=== PATIENT | male | born 1965 | race Two or more races ===

== ENCOUNTER 2025-01-16 14:58 | Emergency (ER) | payer SELFPAY ==
[~2025-01-16] VITALS: Ht 180.3 cm; Wt 93.0 kg
--- NOTE | 2025-01-16 15:09 | ED.PDOC ---
History of Present Illness HPI Comments 59M presents to the Er w/ no prior Hx associated to the c/c of congestion. Pt reports of having sinus pressure w/ congestion for the past 3 weeks. Pt notes that he was in the ER 2 months ago for cough. Denies chills, fever, N/V/D, CP. Patient does state continued intermittent cough. No other associated symptoms, modifiers, recent injuries or sick contacts present at this time. Vital signs were stable at arrival. Chief Complaint: Flu like Time Seen by MD: 15:00 Reviewed Notes: Nurses Notes, Medications, Allergies Allergies: Coded Allergies: NO KNOWN ALLERGIES (Unverified , 01/16/25) Information Source: Patient Mode of Arrival: Ambulatory Severity: Moderate Timing: Weeks Duration: Since onset Prehospital treatment: None Past Medical History PAST MEDICAL HISTORY: Denies Surgical History: Denies all surgeries Family History Family History: Reviewed,noncontributory to illness, Unknown Social History Smoker: Non-Smoker Alcohol: Denies ETOH Use Drugs: Denies Drug Use Lives In: Home Constitutional: denies: chills, diaphoresis, fatigue, fever, malaise, sweats, weakness, others EENTM: denies: blurred vision, double vision, ear bleeding, ear discharge, ear drainage, ear pain, ear ringing, eye pain, eye redness, hearing loss, mouth pain, mouth swelling, nasal discharge, nose bleeding, nose congestion, nose pain, photophobia, tearing, throat pain, throat swelling, voice changes, others Respiratory: reports: cough, others (Congestion and nasal pressure); denies: hemoptysis, orthopnea, SOB at rest, shortness of breath, SOB with excertion, stridor, wheezing Cardiovascular: denies: chest pain, dizzy spells, diaphoresis, Dyspnea on exertion, edema, irregular heart beat, left arm pain, lightheadedness, palpitations, PND, syncope, others Gastrointestinal: denies: abdomen distended, abdominal pain, blood streaked bowels, constipated, diarrhea, dysphagia, difficulty swallowing, hematemesis, melena, nausea, poor appetite, poor fluid intake, rectal bleeding, rectal pain, vomiting, others Genitourinary: denies: burning, dysuria, flank pain, frequency, hematuria, incontinence, penile discharge, penile sore, pain, testicle pain, testicle swelling, urgency, others Neurological: denies: dizziness, fainting, headache, left sided numbness, left sided weakness, numbness, paresthesia, pre-existing deficit, right sided numbness, right sided weakness, seizure, speech problems, tingling, tremors, weakness, others Musculoskeletal: denies: back pain, gout, joint pain, joint swelling, muscle pain, muscle stiffness, neck pain, others Integumetry: denies: bruises, change in color, change in hair/nails, dryness, laceration, lesions, lumps, rash, wounds, others Allergic/Immunocompromised: denies: Difficulty Healing, Frequent Infections, Hives, Itching, others Hematologic/Lymphatic: denies: anemia, blood clots, easy bleeding, easy bruising, swollen glands, others Endocrine: denies: excessive hunger, excessive sweating, excessive thirst, excessive urination, flushing, intolerance to cold, intolerance to heat, unexplained weight gain, unexplained weight loss, others Psychiatric: denies: anxiety, bipolar disorder, depression, hopeless, panic disorder, schizophrenia, sleepless, suicidal, others All Other Systems: Reviewed and Negative Physical Exam General Appearance: Mild Distress (Due to nasal congestion), Normal HEENT: Pharynx Normal, TMs Normal, Other (Mild coryza appreciated.) Neck: Full Range of Motion, Non-Tender, Normal, Normal Inspection Respiratory: Chest Non-Tender, Lungs Clear, No Accessory Muscle Use, No Respiratory Distress, Normal Breath Sounds, Other (Unremarkable auscultation bilateral lung jerez.) Cardiovascular: No Edema, No JVD, No Murmur, No Gallop, Normal Peripheral Pulses, Regular Rate/Rhythm Breast Exam: Deferred Gastrointestinal: No Organomegaly, Non Tender, No Pulsatile Mass, Normal Bowel Sounds, Soft Genitalia: Deferred Pelvic: Deferred Rectal: Deferred Extremities: No calf tenderness, Normal capillary refill, Normal inspection, Normal range of motion, Non-tender, No pedal edema Musculoskeletal : Apperance: Normal Neurologic: Alert, No Motor Deficits, Normal Affect, Normal Mood, No Sensory Deficits Cerebellar Function: Normal Reflexes: Normal Skin: Dry, Normal Color, Warm Lymphatic: No Adenopathy Was a procedure done? Was a procedure done?: No Differential Dx Considerations may include: Bacterial sinusitis, viral sinusitis, viral upper respiratory illness, pneumonia X-Ray, Labs, Meds, VS Vital Signs Date Time Temp Pulse Resp B/P (MAP) Pulse Ox O2 Delivery O2 Flow Rate FiO2 01/16/25 15:05 97.4 104 20 145/80 (101) 95 97.4 01/16/25 15:05 20 95 Room Air 0 X-Ray, Labs, Meds, VS Comment All studies performed the ED were evaluated by me personally. Imaging studies were unremarkable for any consolidation or intrapulmonary concerns. Due to the multi week concerns related to the sinus issue, I will treat the patient empirically with the antibiotics to address possible bacterial sinusitis. Advise utilizing medication as directed. Additional medication as needed. Good hydration and healthy nutrition throughout. Time of 1ST Reevaluation: 16:26 Reevaluation 1ST: Unchanged Consultation: PCP Patient Education/Counseling: Diagnosis, Treatment, Prognosis Family Education/Counseling: Diagnosis, Treatment, No Family Present Departure 1 Departure Time of Disposition: 16:27 Impression: Primary Impression: Sinusitis Disposition: 01 HOME / SELF CARE / HOMELESS Condition: Stable Additional Instructions: Advise utilizing antibiotics as directed until completion as well as additional medication as needed. Good hydration and healthy nutrition throughout. e-Prescriptions Oxymetazoline Hcl (AFRIN 12 HOUR) 0.05 % Spr 2 SPRAY NA BID, #15 ML Prov: BONNIE MEJÍA PAC 01/16/25 Amoxicillin & Pot Clavulanate (AUGMENTIN TABLET) 875 Mg Tb 875 MG PO BID for 7 Days, #14 TAB Prov: BONNIE MEJÍA PAC 01/16/25 Discharged With: Self, Friend Critical Care Note Critical Care Time?: No Stability Stability form required: No Heart Score Heart Score: Heart Score Response (Comments) Value History N/A 0 EKG N/A 0 Age N/A 0 Risk Factors N/A 0 Troponin N/A 0 Total 0 I personally scribed for BONNIE MEJÍA PAC ([email or web address]) on 01/16/25 at 15:09. Electronically submitted by Hilario Aleamn ([email or web address]). BONNIE MEJÍA PAC January 16, 2025 15:09
--- NOTE | 2025-01-16 15:49 | DVH ---
XY CHEST PORTABLE, HISTORY: Cough COMPARISON: None None TECHNICAL DATA: 1 view of the chest was obtained. FINDINGS: Lines and tubes: None Cardiomediastinal silhouette: normal Pulmonary vasculature: normal Lung expansion: normal Lung airspace: normal Lung interstitium: normal Pleura: normal Pneumothorax: no Bones: Unremarkable Other: no IMPRESSION: No acute intrathoracic abnormality.
[2025-01-16] MEDS ORDERED: AUG875T PO (16:29)
[2025-01-16] MEDS ORDERED: OXYM-15 (16:29)
[2025-01-16 16:52] VITALS: BP 153/95; PULSE 87; RESP 20; TEMP 98.8; O2SAT 97
== END 2025-01-16 17:03 | disposition home or self-care (01) ==
LOC: ER 14:58
DX: J32.9 Chronic sinusitis, unspecified (principal); R05.9 Cough, unspecified
CPT/HCPCS: 71045

== ENCOUNTER 2025-02-02 20:55 | Emergency (ER) | payer SELFPAY ==
[~2025-02-02] VITALS: Ht 180.3 cm; Wt 95.5 kg
[~2025-02-02 20:55] MED LIST: AUG875T PO; OXYM-15
[2025-02-02 21:56] VITALS: BP 160/98; PULSE 89; RESP 18; TEMP 97.6; O2SAT 95
[2025-02-02] MEDS ORDERED: FLUT1SPR5 (22:06)
[2025-02-02] MEDS ORDERED: LORA10CA PO (22:06)
--- NOTE | 2025-02-02 22:06 | ED.PDOC ---
Eye-HPI HPI Comments 59-year-old male presents to ER with complaints of sinus congestion x6 months. 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 Reports that he has been seen several times for this complaint with his last visit here on 01/16/2025 and was prescribed Augmentin antibiotics along with Afrin that he has finished without relief. Denies any pain. Patient presents to ER afebrile, ambulatory, with steady gait, in no distress. Denies headache, skin changes, purulent nasal drainage, shortness of breath, cough, body aches, chills or any further symptoms/complaints Chief Complaint: Flu like Time Seen by MD: 21:05 Primary Care Provider: UNKNOWN Reviewed Notes: Nurses Notes, Medications, Allergies Allergies: Coded Allergies: NO KNOWN ALLERGIES (Unverified , 01/16/25) Home Meds Active Scripts Fluticasone Propionate (Nasal) (Flonase Allergy Relief) 50 Mcg/Act Spr, 2 SPRAYS NA DAILY PRN, #1 SPRAY 0 Refills Prov:RICKY GUZMAN 02/02/25 Loratadine (Claritin) 10 Mg Cap, 10 MG PO DAILY PRN, #30 CAP 0 Refills Prov:RICKY GUZMAN 02/02/25 Oxymetazoline Hcl (AFRIN 12 HOUR) 0.05 % Spr, 2 SPRAY NA BID, #15 ML Prov:BONNIE MEJÍA [facility] 01/16/25 Amoxicillin & Pot Clavulanate (AUGMENTIN TABLET) 875 Mg Tb, 875 MG PO BID for 7 Days, #14 TAB Prov:BONNIE MEJÍA [facility] 01/16/25 Information Source: Patient Mode of Arrival: Ambulatory Past Medical History PAST MEDICAL HISTORY: Denies Surgical History: Denies all surgeries Family History Family History: Unknown Social History Smoker: Non-Smoker Alcohol: Denies ETOH Use Drugs: Denies Drug Use Lives In: Home Constitutional: denies: chills, diaphoresis, fatigue, fever, malaise, sweats, weakness, others EENTM: reports: others (As stated in HPI) Respiratory: denies: cough, hemoptysis, orthopnea, SOB at rest, shortness of breath, SOB with excertion, stridor, wheezing, others Cardiovascular: denies: chest pain, dizzy spells, diaphoresis, Dyspnea on exertion, edema, irregular heart beat, left arm pain, lightheadedness, palpitations, PND, syncope, others Gastrointestinal: denies: abdomen distended, abdominal pain, blood streaked bowels, constipated, diarrhea, dysphagia, difficulty swallowing, hematemesis, melena, nausea, poor appetite, poor fluid intake, rectal bleeding, rectal pain, vomiting, others Genitourinary: denies: burning, dysuria, flank pain, frequency, hematuria, incontinence, penile discharge, penile sore, pain, testicle pain, testicle swelling, urgency, others Neurological: denies: dizziness, fainting, headache, left sided numbness, left sided weakness, numbness, paresthesia, pre-existing deficit, right sided numbness, right sided weakness, seizure, speech problems, tingling, tremors, weakness, others Musculoskeletal: denies: back pain, gout, joint pain, joint swelling, muscle pain, muscle stiffness, neck pain, others Integumetry: denies: bruises, change in color, change in hair/nails, dryness, laceration, lesions, lumps, rash, wounds, others Allergic/Immunocompromised: denies: Difficulty Healing, Frequent Infections, Hives, Itching, others Hematologic/Lymphatic: denies: anemia, blood clots, easy bleeding, easy bruising, swollen glands, others Endocrine: denies: excessive hunger, excessive sweating, excessive thirst, excessive urination, flushing, intolerance to cold, intolerance to heat, unexplained weight gain, unexplained weight loss, others Psychiatric: denies: anxiety, bipolar disorder, depression, hopeless, panic disorder, schizophrenia, sleepless, suicidal, others Physical Exam General Appearance: No Apparent Distress HEENT: PERRL/EOMI, Pharynx Normal, TMs Normal, Other (Slight TTP to ethmoidal sinuses noted with minimal clear drainage noted from bilateral nasal flares, no skin changes/nasal polyps/purulent drainage noted) Neck: Full Range of Motion, Non-Tender, Normal Respiratory: Chest Non-Tender, Lungs Clear, No Accessory Muscle Use, No Respiratory Distress, Normal Breath Sounds Cardiovascular: No Murmur, No Gallop, Regular Rate/Rhythm Breast Exam: Deferred Gastrointestinal: NOT DONE Genitalia: Deferred Pelvic: Deferred Rectal: Deferred Extremities: Normal capillary refill, Normal range of motion Neurologic: Alert, tie loader II-XII nml as Tested, No Motor Deficits, Normal Affect, Normal Mood, No Sensory Deficits Cerebellar Function: Normal Reflexes: Normal Skin: Dry, Normal Color, Warm Lymphatic: No Adenopathy Was a procedure done? Was a procedure done?: No Sedation Sedation?: No EENT DIFF Eye: N/A Nose: Anterior Nasal Bleed, Posterior Nasal Bleed, Foreign Body, Other (Bacterial sinusitis, NASAL FOLLOW UP) X-Ray, Labs, Meds, VS Vital Signs Date Time Temp Pulse Resp B/P (MAP) Pulse Ox O2 Delivery O2 Flow Rate FiO2 02/02/25 21:56 97.6 89 18 160/98 (118) 95 97.6 02/02/25 21:56 Room Air* 0 21 02/02/25 21:10 97.6 89 18 160/98 (118) 95 97.6 Advised to follow up with PCP and ENT in 1-2 days Patient verbalized understanding and agreeable with current plan of care Advised to return to ER immediately if symptoms worsen Time of 1ST Reevaluation: 21:40 Reevaluation 1ST: N/A Patient Education/Counseling: Diagnosis, Treatment, Prognosis, Need For Follow Up Family Education/Counseling: No Family Present Departure 1 Departure Time of Disposition: 22:04 Impression: Primary Impression: Chronic sinusitis Qualified Codes: J32.2 - Chronic ethmoidal sinusitis Disposition: 01 HOME / SELF CARE / HOMELESS Condition: Stable e-Prescriptions Fluticasone Propionate (Nasal) (Flonase Allergy Relief) 50 Mcg/Act Spr 2 SPRAYS NA DAILY PRN, #1 SPRAY 0 Refills Prov: RICKY GUZMAN 02/02/25 Loratadine (Claritin) 10 Mg Cap 10 MG PO DAILY PRN, #30 CAP 0 Refills Prov: RICKY GUZMAN 02/02/25 Discharged With: Self Critical Care Note Critical Care Time?: No Stability Stability form required: No Heart Score Heart Score: Heart Score Response (Comments) Value History N/A 0 EKG N/A 0 Age N/A 0 Risk Factors N/A 0 Troponin N/A 0 Total 0 RICKY GUZMAN February 02, 2025 22:06
== END 2025-02-02 22:16 | disposition home or self-care (01) ==
LOC: ER 20:55
DX: J32.9 Chronic sinusitis, unspecified (principal); Z79.899 Other long term (current) drug therapy